=== PATIENT | male | born 1970 | race African-American/Black ===

== ENCOUNTER 2021-12-26 04:42 | Emergency (ER) | payer OTHER ==
[2021-12-26 04:58] VITALS: BP 115/81; PULSE 80; RESP 17; TEMP 98.7; BMI 29.2
== END 2021-12-26 05:19 | disposition home or self-care (01) ==
LOC: FER 04:42
DX: Z76.0 Encounter for issue of repeat prescription (principal)
CPT/HCPCS: 99281-25

== ENCOUNTER 2023-07-25 19:32 | Emergency (ER) | payer SELFPAY ==
[2023-07-25 19:43] VITALS: BP 131/95; PULSE 77; RESP 17; TEMP 97.6; BMI 29.5
[2023-07-25] MEDS ORDERED: KETOROLAC TROMETHAMINE 60 MG/2 ML VIAL ONE (20:00)
[2023-07-25 20:10] LABS: HEMATOCRIT 44.7 % (35.4-49); HEMOGLOBIN 14.9 G/dL (11.7-16.9); MCH 31.4 pg (25.7-33.7); MCHC 33.2 g/dl (32.0-35.9); MEAN CELL VOLUME 94.6 fl (80-96); MEAN PLT VOLUME 7.1 fl (7.5-11.1); PLATELET COUNT 259.5 10^3/uL (134-434); RBC 4.73 10^6/uL (4.00-5.60); RDW 13.4 % (11.9-15.9); WHITE BLOOD COUNT 5.9 10^3/uL (4.0-10.8)
[2023-07-25] MEDS: KETOROLAC TROMETHAMINE 60 MG/2 ML VIAL IM ONE (20:11)
== END 2023-07-25 20:54 | disposition home or self-care (01) ==
LOC: FER 19:32
PROC: 3E0233Z Introduction of Anti-inflammatory into Muscle, Percutaneous Approach (ICD-10-PCS; principal; 2023-07-25)
DX: M25.532 Pain in left wrist (principal)
CPT/HCPCS: 36415; 73110-TC-LT-FY; 84550; 85027; 99284-25

== ENCOUNTER 2024-05-02 09:30 | Emergency (ER) | payer OTHER ==
[2024-05-02 09:51] VITALS: BP 153/100; PULSE 67; RESP 18; TEMP 98.4; BMI 30.8
[2024-05-02] MEDS ORDERED: KETOROLAC TROMETHAMINE 30 MG/1 ML VIAL ONE (10:12)
[2024-05-02] MEDS ORDERED: METHOCARBAMOL 500 MG TABLET ONE (10:12)
[2024-05-02] MEDS: METHOCARBAMOL 500 MG TABLET PO ONE (10:17)
[2024-05-02] MEDS: KETOROLAC TROMETHAMINE 30 MG/1 ML VIAL IM ONE (10:17)
== END 2024-05-02 11:09 | disposition home or self-care (01) ==
LOC: FER 09:30
PROC: 3E0233Z Introduction of Anti-inflammatory into Muscle, Percutaneous Approach (ICD-10-PCS; principal; 2024-05-02)
DX: M25.511 Pain in right shoulder (principal); R07.9 Chest pain, unspecified
CPT/HCPCS: 71045-TC-FY; 93005; 99284-25